=== PATIENT | male | born 1950 | race Caucasian/White ===

== ENCOUNTER 2019-02-19 11:59 | Emergency (ER) | payer OTHER | END 2019-02-19 13:05 | disposition home or self-care (01) | LOC: ERS 11:59 | DX: Z45.2 Encounter for adjustment and management of vascular access device (principal); E11.9 Type 2 diabetes mellitus without complications; I10 Essential (primary) hypertension; Z79.82 Long term (current) use of aspirin; Z79.899 Other long term (current) drug therapy | CPT/HCPCS: 99283 ==

== ENCOUNTER 2022-01-05 11:50 | Outpatient (CLI) | payer MEDICARE | END 2022-01-05 11:51 | disposition home or self-care (01) | LOC: BICRAD 11:50 | PROVIDERS: ATTEND Podiatrist | DX: L97.419 Non-pressure chronic ulcer of right heel and midfoot with unspecified severity (principal) ==

== ENCOUNTER 2022-01-22 10:44 | Outpatient (CLI) | payer MEDICARE | END 2022-01-22 10:45 | disposition home or self-care (01) | LOC: RAD 10:44 | PROVIDERS: ATTEND Podiatrist | DX: L89.899 Pressure ulcer of other site, unspecified stage (principal); M86.8X8 Other osteomyelitis, other site ==

== ENCOUNTER 2022-02-20 13:42 | Outpatient (CLI) | payer MEDICARE | END 2022-02-20 13:43 | disposition home or self-care (01) | LOC: RAD 13:42 | PROVIDERS: ATTEND Podiatrist | DX: L97.519 Non-pressure chronic ulcer of other part of right foot with unspecified severity (principal) ==

== ENCOUNTER 2022-03-07 12:17 | Outpatient (CLI) | payer MEDICARE | END 2022-03-07 12:18 | disposition home or self-care (01) | LOC: RAD 12:17 | PROVIDERS: ATTEND Podiatrist | DX: E11.621 Type 2 diabetes mellitus with foot ulcer (principal); L97.519 Non-pressure chronic ulcer of other part of right foot with unspecified severity ==

== ENCOUNTER 2022-03-08 13:10 | Day surgery (SDC) | payer MEDICARE ==
[2022-03-08] MEDS ORDERED: Bacitracin Zinc Ointment 30 gm TUBE ONE (15:11)
[2022-03-08] MEDS ORDERED: Neomycin-Polymyxin 1 ML AMP ONE (15:11)
[2022-03-08] MEDS ORDERED: Lidocaine 2% PF 5 ML VIAL ONE ×2 (15:11→15:13)
[2022-03-08] MEDS ORDERED: Bupivacaine PF 0.5% 30 ML VIAL ONE (15:11)
[2022-03-08] MEDS ORDERED: fentaNYL PF 100 MCG/2 ML SYRINGE ONE (15:23)
[2022-03-08] MEDS ORDERED: PROPOFOL 200 MG/20 ML VIAL ONE (15:40)
== END 2022-03-08 17:14 | disposition home or self-care (01) ==
LOC: SDC 13:10
PROVIDERS: ATTEND Podiatrist
PROC: 0Y6R0Z0 Detachment at Right 2nd Toe, Complete, Open Approach (ICD-10-PCS; principal; 2022-03-08)
DX: E11.69 Type 2 diabetes mellitus with other specified complication (principal); M86.8X7 Other osteomyelitis, ankle and foot; I96 Gangrene, not elsewhere classified; I25.10 Atherosclerotic heart disease of native coronary artery without angina pectoris; I10 Essential (primary) hypertension; E78.5 Hyperlipidemia, unspecified; E11.51 Type 2 diabetes mellitus with diabetic peripheral angiopathy without gangrene; Z79.2 Long term (current) use of antibiotics; Z79.899 Other long term (current) drug therapy; Z88.1 Allergy status to other antibiotic agents; Z88.2 Allergy status to sulfonamides; Z95.1 Presence of aortocoronary bypass graft
CPT/HCPCS: 36416; 87070; 87205; 88305; 93005; 93010; J2001; J2704; S0020